=== PATIENT | male | born 1965 | race Caucasian/White ===

== ENCOUNTER 2021-06-18 18:04 | Inpatient (IN) | payer SELFPAY ==
[2021-06-18] MEDS ORDERED: Furosemide 40 MG/4 ML VIAL ONE (18:32)
[2021-06-18 18:59] LABS: ALT (SGPT) 392 U/L (8-55); AST (SGOT) 108 U/L (5-34); Albumin 3.1 g/dL (3.5-5.0); Alkaline Phosphatase 191 U/L (40-110); Anion Gap 14 mmol/L (10-20); BUN (Urea Nitrogen) 19 mg/dL (8.4-25.7); Bilirubin, Total 1.4 mg/dL (0.2-1.2); Calc. Creatinine Clearance 0 mL/min (70-130); Calcium 8.5 mg/dL (7.8-10.44); Carbon Dioxide 21 mmol/L (22-29); Chloride 104 mmol/L (98-107); Globulin 3.2 g/dL (2.4-3.5); Glucose 253 mg/dL (70-105); Potassium 3.7 mmol/L (3.5-5.1); Protein, Total 6.3 g/dL (6.0-8.3); Sodium 135 mmol/L (136-145)
[2021-06-18] MEDS ORDERED: cloNIDine 0.1 MG TAB ONE (19:16)
[2021-06-18 19:27] LABS: CKMB 7.3 ng/mL (0-6.6)
[2021-06-18] MEDS ORDERED: Aspirin Chewable 81 MG TAB ONE (21:26)
[2021-06-18] MEDS ORDERED: Nitroglycerin 0.4 MG TAB (25 Tab Bottle) SL PRN (23:51)
[2021-06-18] MEDS ORDERED: Acetaminophen 325 MG TAB PO PRN (23:51)
[2021-06-18] MEDS ORDERED: Ondansetron PF 4 MG/2 ML Vial IVP PRN (23:51)
[2021-06-19] MEDS ORDERED: HumaLOG 300 UNITS/3 ML VIAL SC PRN ×2 (00:09→07:45)
[2021-06-19] MEDS ORDERED: Dextrose 5% in Water 1,000 ML IV PRN (00:09)
[2021-06-19] MEDS ORDERED: Dextrose 50% Abboject 50 ML SYRINGE SLOW IVP PRN (00:09)
[2021-06-19 00:27] VITALS: BMI 34.7
[2021-06-19 00:55] LABS: SARS-CoV-2 NAA Rapid Test Not Detected (NotDetected)
[2021-06-19 01:07] LABS: Troponin I 0.166 ng/mL (< 0.028)
[2021-06-19 04:39] LABS: Hemoglobin A1c 9.4 % (4.0-6.0)
[2021-06-19 04:56] LABS: Anion Gap 12 mmol/L (10-20); BUN (Urea Nitrogen) 21 mg/dL (8.4-25.7); Calc. Creatinine Clearance 94 mL/min (70-130); Calcium 8.4 mg/dL (7.8-10.44); Carbon Dioxide 23 mmol/L (22-29); Cardiac Risk 4.1 (Less than 4.5); Chloride 105 mmol/L (98-107); Cholesterol 103 mg/dl (< 200 Desired); Glucose 297 mg/dL (70-105); HDL Cholesterol 25 mg/dL (>60 Neg Risk); LDL Cholesterol, Calculated 64 mg/dL; Potassium 3.5 mmol/L (3.5-5.1); Sodium 136 mmol/L (136-145); Triglycerides 72 mg/dL (Less than 150)
[2021-06-19 05:00] LABS: Troponin I 0.138 ng/mL (< 0.028)
[2021-06-19] MEDS: Furosemide 40 MG/4 ML VIAL SLOW IVP SCH ×2 (05:33→15:28)
[2021-06-19 06:20] LABS: #Eosinphils 0.4 thou/uL (0.0-0.7); #Lymphocytes 0.9 thou/uL (1.20-3.40); #Monocytes 0.7 thou/uL (0.11-0.59); #Neutrophils 4.7 thou/uL (1.40-6.50); %Basophils 0.3 % (0.0-1.0); %Eosinophils 5.4 % (0.0-10.0); %Lymphocytes 13.7 % (21.0-51.0); %Monocytes 10.7 % (0.0-10.0); %Neutrophils 69.9 % (42.0-75.0); Anisocytosis SLIGHT = 6-15 cells (100X) (0-5/hpf); Hemoglobin 8.6 g/dL (14.0-18.0); Hypochromia SLIGHT = 6-15 cells (100X) (0-5/hpf); MDiff Complete? YES; Mean Corpuscular Hemoglobin 21.2 pg (27.0-31.0); Mean Corpuscular Volume 70.6 fL (78.0-98.0); Mean Platelet Volume 10.5 fL (7.4-10.4); Platelet Count 241 thou/uL (130-400); RBC Distribution Width 17.6 % (11.5-14.5); Red Blood Cell (RBC) Count 4.04 mill/uL (4.70-6.10); White Blood Cell (WBC) Count 6.8 thou/uL (4.8-10.8)
[2021-06-19] MEDS ORDERED: glipiZIDE 5 MG TAB PO SCH ×2 (07:45→16:30)
[2021-06-19 08:13] LABS: Magnesium 1.9 mg/dL (1.6-2.6)
[2021-06-19] MEDS ORDERED: Enoxaparin Sodium 40 MG/0.4 ML SYRINGE SC SCH (09:00)
[2021-06-19] MEDS ORDERED: FLU VACC QS2021-22(6MOS UP)/PF 60 MCG/0.5 ML SYRINGE IM ONE (09:00)
[2021-06-19] MEDS: Carvedilol 3.125 MG TAB PO SCH ×2 (09:24→22:14)
[2021-06-19] MEDS: Aspirin Chewable 81 MG TAB PO SCH (09:24)
[2021-06-19] MEDS: Enoxaparin Sodium 40 MG/0.4 ML SYRINGE SC SCH (09:25)
[2021-06-19] MEDS ORDERED: Spironolactone 25 MG TAB PO SCH (09:30)
[2021-06-19] MEDS ORDERED: Magnesium 2 GM/50 ML 2 GM in Premix Bag 1 BAG IVPB SCH (09:45)
[2021-06-19] MEDS: Lisinopril 5 MG TAB PO SCH ×2 (10:56→22:14)
[2021-06-19] MEDS ORDERED: Potassium Chloride 20 MEQ TAB PO SCH (12:00)
[2021-06-19] MEDS ORDERED: Furosemide 40 MG/4 ML VIAL SLOW IVP SCH (18:00)
[2021-06-20 05:36] LABS: ALT (SGPT) 285 U/L (8-55); AST (SGOT) 93 U/L (5-34); Albumin 2.8 g/dL (3.5-5.0); Alkaline Phosphatase 142 U/L (40-110); Anion Gap 10 mmol/L (10-20); BUN (Urea Nitrogen) 22 mg/dL (8.4-25.7); Bilirubin, Total 1.1 mg/dL (0.2-1.2); Calc. Creatinine Clearance 98 mL/min (70-130); Calcium 8.4 mg/dL (7.8-10.44); Carbon Dioxide 27 mmol/L (22-29); Chloride 105 mmol/L (98-107); Glucose 87 mg/dL (70-105); Potassium 3.6 mmol/L (3.5-5.1); Protein, Total 5.8 g/dL (6.0-8.3); Sodium 138 mmol/L (136-145)
[2021-06-20] MEDS: Furosemide 40 MG/4 ML VIAL SLOW IVP SCH ×2 (06:07→15:04)
[2021-06-20] MEDS ORDERED: Spironolactone 25 MG TAB PO SCH ×2 (08:00→17:00)
[2021-06-20] MEDS ORDERED: Potassium Chloride 20 MEQ TAB PO SCH (08:30)
[2021-06-20] MEDS: Aspirin Chewable 81 MG TAB PO SCH (09:21)
[2021-06-20] MEDS: glipiZIDE 5 MG TAB PO SCH (09:21)
[2021-06-20] MEDS: Carvedilol 3.125 MG TAB PO SCH ×2 (09:22→21:30)
[2021-06-20] MEDS: Lisinopril 5 MG TAB PO SCH ×2 (09:22→21:29)
[2021-06-20] MEDS: Enoxaparin Sodium 40 MG/0.4 ML SYRINGE SC SCH ×2 (09:23→09:32)
[2021-06-20] MEDS ORDERED: Iron, Sodium Ferric Gluconate 250 MG in Sodium Chloride 0.9% 250 ML 250 ML IVPB SCH ×2 (10:00→15:00)
[2021-06-20] MEDS: HumaLOG 300 UNITS/3 ML VIAL SC PRN (12:36)
[2021-06-20] MEDS: Iron, Sodium Ferric Gluconate 250 MG in Sodium Chloride 0.9% 250 ML 250 ML IVPB SCH (21:30)
[2021-06-21] MEDS: Furosemide 40 MG/4 ML VIAL SLOW IVP SCH (05:27)
[2021-06-21 06:00] LABS: ALT (SGPT) 256 U/L (8-55); AST (SGOT) 69 U/L (5-34); Albumin 3.2 g/dL (3.5-5.0); Alkaline Phosphatase 149 U/L (40-110); Anion Gap 9 mmol/L (10-20); BUN (Urea Nitrogen) 25 mg/dL (8.4-25.7); Bilirubin, Total 0.8 mg/dL (0.2-1.2); Calc. Creatinine Clearance 75 mL/min (70-130); Carbon Dioxide 30 mmol/L (22-29); Chloride 105 mmol/L (98-107); Globulin 3.6 g/dL (2.4-3.5); Glucose 179 mg/dL (70-105); Magnesium 2.1 mg/dL (1.6-2.6); Protein, Total 6.8 g/dL (6.0-8.3); Sodium 140 mmol/L (136-145)
[2021-06-21 06:10] LABS: Hemoglobin 9.8 g/dL (14.0-18.0); Platelet Count 296 thou/uL (130-400)
[2021-06-21] MEDS: glipiZIDE 5 MG TAB PO SCH (08:24)
[2021-06-21] MEDS ORDERED: Sodium Chloride 0.9% 500 ML IV SCH (08:45)
[2021-06-21] MEDS: Carvedilol 3.125 MG TAB PO SCH ×2 (08:45→19:53)
[2021-06-21] MEDS ORDERED: Famotidine 20 MG TAB PO SCH (10:00)
[2021-06-21] MEDS: diphenhydrAMINE 25 MG CAP PO SCH ×2 (11:47→17:31)
[2021-06-21] MEDS: HumaLOG 300 UNITS/3 ML VIAL SC PRN (11:51)
[2021-06-21] MEDS: Iron, Sodium Ferric Gluconate 250 MG in Sodium Chloride 0.9% 250 ML 250 ML IVPB SCH (12:35)
[2021-06-21] MEDS: Famotidine 20 MG TAB PO SCH (19:53)
[2021-06-21] MEDS ORDERED: Loratadine 10 MG TAB PO SCH (21:00)
[2021-06-22] MEDS: HumaLOG 300 UNITS/3 ML VIAL SC PRN ×2 (05:56→11:54)
[2021-06-22] MEDS: Famotidine 20 MG TAB PO SCH (08:34)
[2021-06-22] MEDS: glipiZIDE 5 MG TAB PO SCH (08:34)
[2021-06-22] MEDS: Carvedilol 3.125 MG TAB PO SCH (08:34)
[2021-06-22 08:51] VITALS: TEMP 97.8
[2021-06-22 09:32] LABS: Anion Gap 8 mmol/L (10-20); BUN (Urea Nitrogen) 22 mg/dL (8.4-25.7); Calc. Creatinine Clearance 82 mL/min (70-130); Calcium 9.3 mg/dL (7.8-10.44); Carbon Dioxide 31 mmol/L (22-29); Chloride 106 mmol/L (98-107); Glucose 157 mg/dL (70-105); Magnesium 2.3 mg/dL (1.6-2.6); Potassium 4.4 mmol/L (3.5-5.1); Sodium 141 mmol/L (136-145)
[2021-06-22] MEDS ORDERED: Lisinopril 5 MG TAB PO SCH ×3 (09:41→21:00)
[2021-06-22] MEDS ORDERED: Carvedilol 3.125 MG TAB PO SCH ×2 (09:41→11:30)
[2021-06-22] MEDS ORDERED: Carvedilol 6.25 MG TAB PO SCH ×2 (10:00→21:00)
[2021-06-22 11:15] VITALS: BP 133/78
[2021-06-23] MEDS ORDERED: Furosemide 40 MG TAB PO SCH (07:30)
[2021-06-23] MEDS ORDERED: Potassium Chloride 20 MEQ TAB PO SCH (08:00)
== END 2021-06-22 15:45 | disposition home or self-care (01) | DRG 280 ==
LOC: ERS 18:04 → 2NO 22:35
PROVIDERS: ADMIT Student in an Organized Health Care Education/Training Program; ATTEND Internal Medicine
DX: I13.0 Hypertensive heart and chronic kidney disease with heart failure and stage 1 through stage 4 chronic kidney disease, or unspecified chronic kidney disease (principal); I50.23 Acute on chronic systolic (congestive) heart failure; Z20.822 Contact with and (suspected) exposure to COVID-19; I21.4 Non-ST elevation (NSTEMI) myocardial infarction; I69.951 Hemiplegia and hemiparesis following unspecified cerebrovascular disease affecting right dominant side; N17.9 Acute kidney failure, unspecified; E11.22 Type 2 diabetes mellitus with diabetic chronic kidney disease; E78.00 Pure hypercholesterolemia, unspecified; Z79.84 Long term (current) use of oral hypoglycemic drugs; Z79.899 Other long term (current) drug therapy; Z90.49 Acquired absence of other specified parts of digestive tract; Z83.3 Family history of diabetes mellitus; Z82.49 Family history of ischemic heart disease and other diseases of the circulatory system; Z80.9 Family history of malignant neoplasm, unspecified; Z91.14 Patient's other noncompliance with medication regimen; N18.2 Chronic kidney disease, stage 2 (mild); D63.1 Anemia in chronic kidney disease
CPT/HCPCS: 36415; 36416; 71045; 80048; 80053; 80061; 82553; 82728; 83036; 83735; 83880; 84484; 85014; 85018; 85025; 85049; 90471; 90686; 93005; 93306; 93798; 94760; 96374; G0008; J1650; J1815; J1940; J2916; J3475; J7030; J7050; U0002